=== PATIENT | male | born 1995 | race African-American/Black ===

== ENCOUNTER 2020-08-12 05:02 | Emergency (ER) | payer OTHER, SELFPAY ==
[2020-08-12 04:55] VITALS: BP 123/75; PULSE 93; RESP 18; TEMP 36.4; O2SAT 99
[2020-08-12] MEDS: TETANUS,DIPHTHERIA,AC PERTUSSIS ADULT (0.5 ML) BOOSTRIX IM (05:27)
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
[2020-08-12 06:27] VITALS: BP 117/52; PULSE 89; RESP 18; O2SAT 99
== END 2020-08-12 06:29 | disposition home or self-care (01) ==
PROVIDERS: Emergency Provider Emergency Medicine
DX: S01.111A Laceration without foreign body of right eyelid and periocular area, initial encounter (principal); S01.511A Laceration without foreign body of lip, initial encounter; Z23 Encounter for immunization; V48.5XXA Car driver injured in noncollision transport accident in traffic accident, initial encounter
CPT/HCPCS: 12011; 90471; 90715; 99282